=== PATIENT | male | born 1985 | race Caucasian/White ===

== ENCOUNTER → 2016-09-30 | Outpatient (CLI) | payer BC ==
--- NOTE | 2016-09-30 16:27 | US ---
HISTORY: Testicular hypofunction. Study: Testicular ultrasound. Comparison: None. Technique: Multiple sainz scale and Doppler images of the right and left testicles were obtained Findings: The testicles demonstrate normal echotexture. No intra parenchymal mass or infiltrative process can be identified. Normal color flow Doppler is observed. The right testicle measures 4.7 x 2.0 x 3.1 cm. The left testicle measures 4.4 x 2.3 x 2.9 cm. The epididymides are unremarkable without mass or cystic lesion. Small bilateral hydroceles. No obvious varicoceles. IMPRESSION: Small bilateral hydroceles. Otherwise, unremarkable exam. Reported By:
== END ==
LOC: RAD 14:42
PROVIDERS: ATTEND Nurse Practitioner Family
DX: E29.1 Testicular hypofunction (principal); N50.819 Testicular pain, unspecified
CPT/HCPCS: 76870